=== PATIENT | male | born 1945 | race Caucasian/White ===

== ENCOUNTER 2016-10-04 00:45 | Inpatient (IN) | payer OTHER ==
[~2016-10-04] VITALS: Ht 167.6 cm; Wt 91.4 kg
[~2016-10-04 00:45] MED LIST: ASPIR 8181 M1 PO; BENICAR40 MG PO; CATAPRES0.2 MG PO; COREG25 M1 PO; Coreg PO; DAILY VALUE1 EACH PO; Ecotrin PO; FINASTERIDE5 MG PO; FISH OIL300 MG PO; FLOVENT DISKUS1 DIS2 IH; Fish Oil PO; GLUCOPHAGE500 MG PO; HYDROCHLOROTHIA25 MG PO; Hydrodiuril,Oretic,E PO; IRON325 MG PO; ISOSORBIDE MONO60 MG PO; LIPITOR80 MG PO; Lipitor PO; MAXZIDE 37.5 M1 EACH PO; NAPROXEN SODIU220 MG PO; NIFEDIPINE ER60 MG PO; PLAVIX75 MG PO; Procardia XL,Adalat PO; Proscar PO; VITAMIN A & D PO
[2016-10-04 01:06] LABS: MEAN PLAT.VOLUME 10.6 uM^3 (9.0-12.4); PLATELET COUNT 347 K/uL (156-360)
[2016-10-04 01:11] LABS: HEMATOCRIT 43.2 % (38.0-50.0); MCH 29.3 PG (29.0-34.0); MCHC 34.7 G/DL (30.0-36.0); MCV 84.4 FL (86-99); RBC DIS.WIDTH-CV 14.9 % (11.8-14.6); RBC DIS.WIDTH-SD 45.1 % (39-53); RED BLOOD COUNT 5.12 M/uL (4.00-5.50)
[2016-10-04 01:12] LABS: WHITE BLOOD COUNT 33.7 K/uL (4.1-10.2)
[2016-10-04 01:14] LABS: CHLORIDE 95 mEq/L (99-109); POTASSIUM 4.3 mEq/L (3.7-5.4); SODIUM 137 mEq/L (136-147)
[2016-10-04 01:15] LABS: GLUCOSE 172 mg/dL (70-99)
[2016-10-04 01:17] LABS: ANION GAP 13 MEQ/L (2-14)
[2016-10-04 01:19] LABS: GFR ESTIMATE (CALCULATED) 49 mL/min/
[2016-10-04 01:20] LABS: UREA NITROGEN (BUN) 36 mg/dL (9-23)
[2016-10-04 02:27] LABS: BASE EXCESS 3.1 mEq/L (-3 to +3); CARBOXY HGB 1.4 % (0-5); METHEMOGLOBIN 0.9 % (0-1.5); PCO2 38 mm Hg (35-45); PO2 63 mm Hg (80-100); pH 7.46 (7.35-7.45)
[2016-10-04 02:28] LABS: COMMENTS - BLOOD GASES C+; DEVICE NC; O2 FLOW 2 L/MIN; SITE LB; TOTAL RESP RATE 16 resp/min
[2016-10-04 02:41] LABS: INTER. NORMALIZED RATIO 1.3; PROTHROMBIN TIME 13.3 (9.2-11.2); PTT 32.4 (25-32)
[2016-10-04 02:58] LABS: TROP-I INTERPRETATION NEGATIVE; TROPONIN-I < 0.01 ng/mL (0.0-0.30)
[2016-10-04 03:20] LABS: INFLUENZA A VIRAL ANTIGEN NEGATIVE; INFLUENZA B VIRAL ANTIGEN NEGATIVE
[2016-10-04 05:13] VITALS: BP 138/77
[2016-10-04 05:47] VITALS: BP 138/77
[2016-10-04 06:09] LABS: COLOR YELLOW ((YELLOW)); LEUKOCYTES NEGATIVE; NITRITE NEGATIVE; PROTEIN (STRIP) TRACE; SPECIFIC GRAVITY 1.024 (1.000-1.030)
[2016-10-04 06:10] LABS: ADD MIUA? YES; BILIRUBIN NEGATIVE; BLOOD NEGATIVE; GLUCOSE (STRIP) NEGATIVE; KETONES NEGATIVE; UROBILINOGEN 0.2 MG/DL (0.2-1.0)
[2016-10-04 06:34] LABS: AMORPHOUS URATES CRYSTALS 2+; BACTERIA 2+ /HPF; CASTS PRESENT /LPF; COARSE GRANULAR CASTS 0-5 /LPF; CRYSTALS PRESENT; EPITHELIAL CELLS NONE SEEN /HPF; FINE GRANULAR CASTS 0-5 /LPF; MUCUS NONE SEEN /LPF; RED BLOOD CELLS NONE SEEN /HPF (0-5); UCUL ADDED? NO; WHITE BLOOD CELLS NONE SEEN /HPF (0-5)
[2016-10-04 07:18] LABS: ANION GAP 15 MEQ/L (2-14); CHLORIDE 100 MEQ/L (99-109); GFR ESTIMATE (CALCULATED) > 59 mL/min/; GLUCOSE 130 mg/dL (70-99); SAMPLE HEMOLYSIS CHECK 0; SAMPLE ICTERIC CHECK 0; SAMPLE LIPEMIA CHECK 0; SODIUM 139 MEQ/L (136-147); TOTAL BILIRUBIN 0.7 MG/DL (0.0-1.0); UREA NITROGEN (BUN) 32 mg/dL (9-23)
[2016-10-04 07:22] LABS: BASOPHIL COUNT 0.1 K/uL (0-0.1); EOSINOPHIL (%) 0.2 % (0-5); EOSINOPHIL COUNT 0.1 K/uL (0-0.3); HEMATOCRIT 36.4 % (38.0-50.0); IMMATURE GRANULOCYTE (%) 0.9 % (0.0-0.7); IMMATURE GRANULOCYTE COUNT 0.3 K/uL; LYMPHOCYTE COUNT 13.8 K/uL (1.0-2.8); MCH 30.2 PG (29.0-34.0); MCHC 34.9 G/DL (30.0-36.0); MCV 86.5 FL (86-99); MONOCYTE (%) 7.5 % (3-12); MONOCYTE COUNT 2.1 K/uL (0-0.8); NEUTROPHIL (%) 41.2 % (45-76); NEUTROPHIL COUNT 11.3 K/uL (1.8-6.4); PLATELET COUNT 284 K/uL (156-360); RBC DIS.WIDTH-CV 14.7 % (11.8-14.6); RBC DIS.WIDTH-SD 45.8 % (39-53); RED BLOOD COUNT 4.21 M/uL (4.00-5.50); WHITE BLOOD COUNT 27.5 K/uL (4.1-10.2)
[2016-10-04 07:23] LABS: ALKALINE PHOSPHATASE 67 IU/L (3-129)
[2016-10-04 07:30] VITALS: BP 168/83
[2016-10-04 07:40] LABS: POINT-OF-CARE METER ID UU14174216
[2016-10-04 07:52] LABS: INTERNAL CONTROL VALID? YES
[2016-10-04 09:19] LABS: HEMATOLOGY COMMENT 1 SMEAR COMPATIBLE; USER ID CL
[2016-10-04 09:27] LABS: BASE EXCESS -1.1 mEq/L (-3 to +3); BICARBONATE 23.5 mEq/L (22-26); CARBOXY HGB 2.2 % (0-5); METHEMOGLOBIN 1.5 % (0-1.5); PCO2 38 mm Hg (35-45); PO2 70 mm Hg (80-100)
[2016-10-04 09:28] LABS: COMMENTS - BLOOD GASES A+C+; O2 FLOW 1 L/MIN; SITE LR; TOTAL RESP RATE 32 resp/min
[2016-10-04 11:15] VITALS: BP 128/74
[2016-10-04 11:30] LABS: POINT-OF-CARE METER ID UU14174216
[2016-10-04] MEDS ORDERED: FISH OIL 1,2001 EAC3 PO (13:18)
[2016-10-04] MEDS ORDERED: COREG12.5 M1 PO (13:19)
[2016-10-04] MEDS ORDERED: VENTOLIN HFA18 GM IH (13:20)
[2016-10-04] MEDS ORDERED: LEVOFLOXACIN750 MG PO (13:21)
[2016-10-04] MEDS ORDERED: PHENERGAN1.25 MG/ML PO (13:22)
[2016-10-04 16:12] VITALS: BP 124/64
[2016-10-04 16:13] LABS: POINT-OF-CARE METER ID UU14174216
[2016-10-04 16:25] LABS: METH RESISTANT S AUREUS PCR NEGATIVE (NEGATIVE)
[2016-10-04 16:32] LABS: PROBE CHECK PASS; SPECIMEN PROCESSING CONTROL PASS
[2016-10-04 19:13] VITALS: BP 129/84
[2016-10-04 21:21] LABS: POINT-OF-CARE METER ID UU13113781
[2016-10-05] VITALS (7 sets, daily range): BP systolic 115–190; BP diastolic 64–87
[2016-10-05 04:29] LABS: POINT-OF-CARE METER ID UU14174216
[2016-10-05 06:32] LABS: HEMATOCRIT 37.5 % (38.0-50.0); MCH 30.5 PG (29.0-34.0); MCHC 35.5 G/DL (30.0-36.0); MEAN PLAT.VOLUME 10.8 uM^3 (9.0-12.4); PLATELET COUNT 306 K/uL (156-360); RBC DIS.WIDTH-CV 14.8 % (11.8-14.6); RBC DIS.WIDTH-SD 46.2 % (39-53); RED BLOOD COUNT 4.36 M/uL (4.00-5.50); WHITE BLOOD COUNT 26.8 K/uL (4.1-10.2)
[2016-10-05 06:57] LABS: ANION GAP 12 MEQ/L (2-14); CHLORIDE 101 MEQ/L (99-109); GFR ESTIMATE (CALCULATED) > 59 mL/min/; GLUCOSE 151 mg/dL (70-99); POTASSIUM 3.9 MEQ/L (3.7-5.4); SAMPLE HEMOLYSIS CHECK 0; SAMPLE ICTERIC CHECK 0; SAMPLE LIPEMIA CHECK 0; SODIUM 138 MEQ/L (136-147); UREA NITROGEN (BUN) 21 mg/dL (9-23)
[2016-10-05 07:46] LABS: POINT-OF-CARE METER ID UU14174216
[2016-10-05 11:26] LABS: POINT-OF-CARE METER ID UU14174216
[2016-10-05 16:01] LABS: POINT-OF-CARE METER ID UU14174216
[2016-10-06 05:23] VITALS: BP 137/68
[2016-10-06 05:59] LABS: MEAN PLAT.VOLUME 11.3 uM^3 (9.0-12.4); PLATELET COUNT 341 K/uL (156-360)
[2016-10-06 06:25] LABS: ANION GAP 10 MEQ/L (2-14); CHLORIDE 100 MEQ/L (99-109); GFR ESTIMATE (CALCULATED) > 59 mL/min/; GLUCOSE 144 mg/dL (70-99); POTASSIUM 4.1 MEQ/L (3.7-5.4); SAMPLE HEMOLYSIS CHECK 0; SAMPLE ICTERIC CHECK 0; SAMPLE LIPEMIA CHECK 0; SODIUM 138 MEQ/L (136-147); UREA NITROGEN (BUN) 20 mg/dL (9-23)
[2016-10-06 06:43] LABS: HEMATOCRIT 39.7 % (38.0-50.0); MCHC 34.8 G/DL (30.0-36.0); MCV 86.3 FL (86-99); RBC DIS.WIDTH-CV 14.8 % (11.8-14.6); RBC DIS.WIDTH-SD 45.5 % (39-53)
[2016-10-06 06:45] LABS: WHITE BLOOD COUNT 30.1 K/uL (4.1-10.2)
[2016-10-06 08:17] VITALS: BP 133/61
[2016-10-06 11:11] VITALS: BP 113/73
[2016-10-06 15:37] VITALS: BP 126/66
[2016-10-06 20:45] LABS: POINT-OF-CARE METER ID UU13113698
[2016-10-06 23:55] VITALS: BP 132/73
[2016-10-07 05:22] VITALS: BP 146/71
[2016-10-07 05:35] LABS: MEAN PLAT.VOLUME 11.6 uM^3 (9.0-12.4); PLATELET COUNT 366 K/uL (156-360)
[2016-10-07 05:51] LABS: BASOPHIL COUNT 0.1 K/uL (0-0.1); EOSINOPHIL (%) 0.9 % (0-5); EOSINOPHIL COUNT 0.3 K/uL (0-0.3); HEMATOCRIT 40.9 % (38.0-50.0); IMMATURE GRANULOCYTE (%) 1.2 % (0.0-0.7); IMMATURE GRANULOCYTE COUNT 0.4 K/uL; LYMPHOCYTE COUNT 19.7 K/uL (1.0-2.8); MCH 30.7 PG (29.0-34.0); MCHC 35.7 G/DL (30.0-36.0); MCV 86.1 FL (86-99); MONOCYTE (%) 3.6 % (3-12); MONOCYTE COUNT 1.2 K/uL (0-0.8); NEUTROPHIL (%) 34.3 % (45-76); NEUTROPHIL COUNT 11.3 K/uL (1.8-6.4); RBC DIS.WIDTH-CV 14.8 % (11.8-14.6); RBC DIS.WIDTH-SD 45.7 % (39-53); RED BLOOD COUNT 4.75 M/uL (4.00-5.50)
[2016-10-07 05:53] LABS: WHITE BLOOD COUNT 32.9 K/uL (4.1-10.2)
[2016-10-07 06:10] LABS: ANION GAP 11 MEQ/L (2-14); CHLORIDE 100 MEQ/L (99-109); GFR ESTIMATE (CALCULATED) > 59 mL/min/; GLUCOSE 152 mg/dL (70-99); POTASSIUM 4.1 MEQ/L (3.7-5.4); SAMPLE HEMOLYSIS CHECK 0; SAMPLE ICTERIC CHECK 0; SAMPLE LIPEMIA CHECK 0; SODIUM 140 MEQ/L (136-147); UREA NITROGEN (BUN) 23 mg/dL (9-23)
[2016-10-07 07:42] VITALS: BP 140/74
[2016-10-07 07:56] LABS: POINT-OF-CARE METER ID UU13113781
[2016-10-07] MEDS ORDERED: BENZONATATE100 MG PO (10:20)
[2016-10-07] MEDS ORDERED: LEVAQUIN500 MG PO (10:21)
[2016-10-07 12:01] LABS: POINT-OF-CARE METER ID UU13113781
[2016-10-07 12:02] VITALS: BP 125/72
== END 2016-10-07 13:27 | disposition home or self-care (01) | DRG 871 ==
LOC: EME 00:45 → EDOF 04:00 → 4EAST 04:00
PROVIDERS: Emergency Medicine; Internal Medicine
DX: A41.9 Sepsis, unspecified organism (principal); J18.9 Pneumonia, unspecified organism; N17.9 Acute kidney failure, unspecified; D72.829 Elevated white blood cell count, unspecified; I25.10 Atherosclerotic heart disease of native coronary artery without angina pectoris; E11.9 Type 2 diabetes mellitus without complications; I10 Essential (primary) hypertension; E78.5 Hyperlipidemia, unspecified; N40.1 Benign prostatic hyperplasia with lower urinary tract symptoms; E66.9 Obesity, unspecified; Z68.32 Body mass index [BMI] 32.0-32.9, adult
CPT/HCPCS: 36415; 36600; 71010; 71020; 71250; 80048; 80053; 81003; 82803; 82948; 83605; 84484; 85025; 85027; 85610; 85730; 87040; 87070; 87205; 87449; 87502; 87641; 93005; 94640; 94640 76; 94667; 94668; 94760; 94799; 99202; 99281; 99285; J0456; J0696; J1644; J1815; J2543; J3260; J3370; J7030; J7050

== ENCOUNTER 2017-11-22 13:08 | Emergency (ER) | payer OTHER ==
[~2017-11-22] VITALS: Ht 167.6 cm; Wt 94.3 kg
[~2017-11-22 13:08] MED LIST changes: +BENZONATATE100 MG PO; +COREG12.5 M1 PO; +FISH OIL 1,2001 EAC3 PO; +LEVAQUIN500 MG PO; +LEVOFLOXACIN750 MG PO; +PHENERGAN1.25 MG/ML PO; +VENTOLIN HFA18 GM IH
[2017-11-22 13:54] LABS: HEMATOCRIT 47.1 % (38.0-50.0); MCH 30.4 PG (29.0-34.0); MCV 89.5 FL (86-99); PLATELET COUNT 180 K/uL (156-360); RBC DIS.WIDTH-CV 15.6 % (11.8-14.6); RBC DIS.WIDTH-SD 51.7 % (39-53); RED BLOOD COUNT 5.26 M/uL (4.00-5.50); WHITE BLOOD COUNT 18.5 K/uL (4.1-10.2)
[2017-11-22 14:02] LABS: CHLORIDE 100 mEq/L (99-109); POTASSIUM 5.1 mEq/L (3.7-5.4); SODIUM 137 mEq/L (136-147)
[2017-11-22 14:04] LABS: GLUCOSE 146 mg/dL (70-99)
[2017-11-22 14:07] LABS: CREATININE 1.3 mg/dL (0.6-1.3); GFR ESTIMATE (CALCULATED) 57 mL/min/ (58.99-99999)
[2017-11-22 14:08] LABS: UREA NITROGEN (BUN) 22 mg/dL (9-23)
[2017-11-22 14:15] LABS: TROP-I INTERPRETATION NEGATIVE; TROPONIN-I < 0.01 ng/mL (0.0-0.30)
[2017-11-22 17:40] LABS: TROP-I INTERPRETATION NEGATIVE; TROPONIN-I < 0.01 ng/mL (0.0-0.30)
[2017-11-22 18:21] VITALS: BP 122/86
== END 2017-11-22 18:22 | disposition home or self-care (01) ==
LOC: EME 13:08
PROVIDERS: Physician Assistant
DX: R07.9 Chest pain, unspecified (principal); I10 Essential (primary) hypertension; I25.2 Old myocardial infarction; K21.9 Gastro-esophageal reflux disease without esophagitis; F41.9 Anxiety disorder, unspecified; Z87.891 Personal history of nicotine dependence; F32.9 Major depressive disorder, single episode, unspecified; Z79.82 Long term (current) use of aspirin
CPT/HCPCS: 71046; 80048; 84484; 85027; 93005; 99281; 99284